=== PATIENT | male | born 1990 | race Caucasian/White ===

== ENCOUNTER 2018-06-06 22:25 | Emergency (ER) | payer SELFPAY ==
[2018-06-06] MEDS ORDERED: Bupivacaine 0.5% 10 ML SDV INFILT ONE (22:26)
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
== END 2018-06-06 23:14 | disposition home or self-care (01) ==
LOC: FB.ED 22:25
DX: S01.81XA Laceration without foreign body of other part of head, initial encounter (principal); F17.210 Nicotine dependence, cigarettes, uncomplicated; Y08.89XA Assault by other specified means, initial encounter
CPT/HCPCS: 12013; 99282; J3490